=== PATIENT | female | born 1950 | race Caucasian/White ===

== ENCOUNTER 2016-12-27 13:54 | Emergency (ER) | payer MEDICARE, OTHER ==
[2016-12-27 14:53] LABS: HEMOGLOBIN 16.3 gm/dl (12.3-15.3); RED BLOOD COUNT 4.83 M/UL (4.00-5.10); WHITE BLOOD COUNT 12.3 K/UL (4.5-11.0)
[2016-12-27 16:17] LABS: BUN/CREATININE RATIO 5 (0-10)
== END 2016-12-27 19:15 | disposition home or self-care (01) ==
LOC: ER1 13:54
PROVIDERS: Physician Assistant
DX: S30.0XXA Contusion of lower back and pelvis, initial encounter (principal); J44.9 Chronic obstructive pulmonary disease, unspecified; E87.6 Hypokalemia; F10.10 Alcohol abuse, uncomplicated; Y90.6 Blood alcohol level of 120-199 mg/100 ml; F12.10 Cannabis abuse, uncomplicated; I25.10 Atherosclerotic heart disease of native coronary artery without angina pectoris; E78.5 Hyperlipidemia, unspecified; F17.210 Nicotine dependence, cigarettes, uncomplicated; W06.XXXA Fall from bed, initial encounter; Z79.899 Other long term (current) drug therapy
CPT/HCPCS: 36415; 71010; 72131; 80053; 80307; 81001; 82550; 82553; 83874; 84484; 85025; 93005; 99285; G0480

== ENCOUNTER → 2022-05-20 | Outpatient (CLI) | payer MEDICARE, OTHER | LOC: ECHO 09:45 | DX: R06.02 Shortness of breath (principal); R60.1 Generalized edema; I08.1 Rheumatic disorders of both mitral and tricuspid valves | CPT/HCPCS: ECHO; 93306 ==

== ENCOUNTER → 2022-06-06 | Outpatient (CLI) | payer MEDICARE, OTHER ==
[~2022-06-06] MED LIST: FAMOTIDINE20 MG PO; FLOVENT 110.088 GM/I INH; IPRAT-ALBUT 0.5-3 ML NEB; LEVOTHYROXINE88 MCG PO; LOPRESSOR 25 MG25 MG PO; MEDROL4 MG PO; METOPROLOL SUCC25 MG PO; PHENERGAN 25 MG25 M1 PO; QUETIAPINE FUM100 MG PO; ROPINIROLE HCL1 MG PO; SIMVASTATIN20 MG PO; XYZAL5 MG PO
== END ==
LOC: EMI 14:41
DX: C34.11 Malignant neoplasm of upper lobe, right bronchus or lung (principal)
CPT/HCPCS: 70553; A9577

== ENCOUNTER 2022-06-13 13:52 | Emergency (ER) | payer MEDICARE, OTHER ==
[~2022-06-13] VITALS: Ht 160 cm; Wt 72.6 kg
[2022-06-13 14:34] LABS: HEMOGLOBIN 14.5 gm/dl (12.3-15.3); RED BLOOD COUNT 4.62 M/UL (4.00-5.10); WHITE BLOOD COUNT 11.7 K/UL (4.5-11.0)
[2022-06-13] MEDS ORDERED: METOPROLOL TART25 MG PO (17:30)
[2022-06-13] MEDS ORDERED: NAMENDA 5 MG TAB5 MG PO (17:32)
[2022-06-13] MEDS ORDERED: DEXAMETHASONE2 MG PO (17:33)
[2022-06-14 10:59] LABS: HEMOGLOBIN 15.1 gm/dl (12.3-15.3); RED BLOOD COUNT 4.86 M/UL (4.00-5.10)
[2022-06-14 11:01] LABS: WHITE BLOOD COUNT 15.4 K/UL (4.5-11.0)
[2022-06-16 15:11] LABS: ORGANISM ID Not indicated. (.); SPECIMEN SOURCE Urine (.); STREPTOCOCCUS PNEUMONIAE AG Negative (Negative)
== END 2022-06-14 12:09 | disposition home or self-care (01) ==
LOC: ER1 13:52
PROVIDERS: Emergency Medicine; Internal Medicine
DX: G93.40 Encephalopathy, unspecified (principal); C34.91 Malignant neoplasm of unspecified part of right bronchus or lung; C79.31 Secondary malignant neoplasm of brain; E86.0 Dehydration; J44.9 Chronic obstructive pulmonary disease, unspecified; E03.9 Hypothyroidism, unspecified; F17.200 Nicotine dependence, unspecified, uncomplicated; I49.1 Atrial premature depolarization; I51.7 Cardiomegaly; Z20.822 Contact with and (suspected) exposure to COVID-19; Z51.81 Encounter for therapeutic drug level monitoring
CPT/HCPCS: 36415; 70450; 71045; 80053; 81001; 82962; 83540; 83550; 83605; 83735; 83880; 84100; 84439; 84443; 84484; 85025; 85027; 85610; 85730; 86140; 87040; 87086; 87278; 87899; 93005; 94664; 96365; 96372; 96375; 96376; 99285; C9113; J1170; J1642; J1650; J2185; J2920; J3360; J3370; J3486; J7030; J7070; U0002